=== PATIENT | female | born 1960 | race Caucasian/White ===

== ENCOUNTER 2023-12-06 09:30 | Inpatient (IN) | payer OTHER ==
[~2023-12-06] VITALS: Ht 160 cm; Wt 95.3 kg
[~2023-12-06 09:30] MED LIST: ALPHAGAN P5 M1 OP; INTEGRA F CAPS1 EACH PO; MICARDIS40 MG PO; ULTRAM50 MG PO; VITAMIN B12-FO1 EACH PO
[2023-12-06] MEDS ORDERED: JARDIANCE10 MG (11:05)
[2023-12-06] MEDS ORDERED: [UNRECOGNIZED DRUG - OTHER] (11:05)
[2023-12-06] MEDS ORDERED: ATACAND32 MG (11:05)
[2023-12-06] MEDS ORDERED: DULCOLAX5 MG (11:06)
[2023-12-06] MEDS ORDERED: ALPHAGAN P5 M2 (11:06)
[2023-12-06] MEDS ORDERED: MIRALAX17 GM (11:06)
[2023-12-06 11:20] LABS: HEMATOCRIT 40.9 % (36.0-45.00); HEMOGLOBIN 14.1 g/dL (12.0-15.00); MEAN CELL VOLUME 93.4 fL (80.00-100.00); MEAN CORPUSCULAR HEMOGLOBIN 32.2 pg (27.00-32.0); MEAN CORPUSCULAR HGB CONC 34.4 g/dl (32.0-36.0); PLATELET COUNT 181 K/uL (150-450); RED BLOOD COUNT 4.37 M/uL (4.00-6.00); RED CELL DISTRIBUTION WIDTH 13.8 % (11.5-14.5)
[2023-12-06 11:45] LABS: INR 0.97; PARTIAL THROMBOPLASTIN TIME 30.8 SECONDS (22.0-34.0); PROTHROMBIN TIME 10.2 SECONDS (9.0-11.5)
[2023-12-06 11:47] LABS: URINE APPEARANCE Clear; URINE BILIRRUBIN Negative (NEGATIVE); URINE BLOOD Negative; URINE COLOR Yellow; URINE GLUCOSE Negative (NEGATIVE); URINE KETONE Negative (NEGATIVE); URINE LEUKOCYTE Negative; URINE NITRATE Negative; URINE PROTEIN Negative (NEGATIVE); URINE UROBILINOGEN 0.2 E.U./dl
[2023-12-06 11:51] LABS: URINE BACTERIA 3822.7 uL (0.0-1933); URINE EPITHELIAL CELLS 136.8 uL (0.0-38.8); URINE WBC 23.9 uL (0.0-23.2)
[2023-12-06 12:07] LABS: ALBUMIN 3.7 gm/dL (3.4-5.0); BILIRUBIN TOTAL 0.56 mg/dL (0.3-1.2); CALCIUM 9.5 mg/dL (8.5-10.1); CREATININE SERUM 0.54 mg/dL (0.55-1.02); GFR 114.39; GLOBULINA 3.2 G/DL (2.4-3.5); POTASSIUM 4.36 mEq/L (3.5-5.1); TOTAL PROTEIN 6.9 gm/dL (6.4-8.2)
[2023-12-13] MEDS ORDERED: LIDOCAINE HCL 1%/EPINEPHRINE 20ML VIAL IJ ONE ×2 (06:54→08:30)
[2023-12-13] MEDS ORDERED: CEFTRIAXONE SODIUM 2,000 MG VIAL ONE (06:54)
[2023-12-13] MEDS ORDERED: BUPIVACAINE HCL/MPF 0.5% 30ML VIAL ONE (06:54)
[2023-12-13] MEDS ORDERED: METRONIDAZOLE/SODIUM CHLORIDE 500 MG/100 ML PIGGYBACK IV ONE ×2 (06:55→08:30)
[2023-12-13] MEDS ORDERED: BUPIVACAINE HCL 30 ML VIAL IJ ONE (08:30)
[2023-12-13] MEDS ORDERED: CEFTRIAXONE SODIUM 2,000 MG VIAL IV ONE (08:30)
[2023-12-13] MEDS ORDERED: SUGAMMADEX SODIUM 200 MG/2 ML VIAL IV ONE (09:00)
[2023-12-13] MEDS ORDERED: LACTOBACILLUS ACIDOPHILUS 1 CAP CAP PO SCH (12:43)
[2023-12-13] MEDS ORDERED: TAMSULOSIN HCL 0.4 MG CAP PO SCH (12:43)
[2023-12-13] MEDS ORDERED: RINGERS SOLUTION,LACTATED 1,000 ML IV SCH (12:45)
[2023-12-13] MEDS ORDERED: OxyCODONE HCL 5 MG TABLET (ROXICODONE) PO PRN (12:45)
[2023-12-13] MEDS ORDERED: MORPHINE SULFATE 4 MG/ML CARTRIDGE IV PRN (12:45)
[2023-12-13] MEDS ORDERED: ONDANSETRON HCL 2 MG/ML VIAL IV PRN (12:45)
[2023-12-13] MEDS ORDERED: ENALAPRILAT DIHYDRATE 1.25 MG/ML VIAL IV ONE ×2 (12:57→13:33)
[2023-12-13] MEDS ORDERED: HYOSCYAMINE SULFATE 0.125 MG TAB.SUBL SL SCH (13:00)
[2023-12-13] MEDS ORDERED: METRONIDAZOLE/SODIUM CHLORIDE 500 MG/100 ML PIGGYBACK IV SCH (17:00)
[2023-12-13] MEDS ORDERED: GABAPENTIN 300 MG CAPSULE PO SCH (17:00)
[2023-12-13] MEDS ORDERED: ACETAMINOPHEN 500 MG GEL..CAP PO SCH (18:00)
[2023-12-13] MEDS ORDERED: ENALAPRILAT DIHYDRATE 1.25 MG/ML VIAL IV PRN (20:30)
[2023-12-13] MEDS ORDERED: CIPROFLOXACIN IN 5 % DEXTROSE 400 MG/200 ML PIGGYBAG IV SCH (21:00)
[2023-12-13] MEDS ORDERED: FAMOTIDINE/PF 20 MG/2 ML VIAL IV PUSH SCH (21:00)
[2023-12-14 08:22] LABS: ALBUMIN 3.2 gm/dL (3.4-5.0); CALCIUM 9.1 mg/dL (8.5-10.1); CREATININE SERUM 0.47 mg/dL (0.55-1.02); GFR 134.27; MAGNESIUM 1.8 mg/dL (1.8-2.4); PHOSPHOROUS 2.3 mg/dL (2.5-4.9); POTASSIUM 3.86 mEq/L (3.5-5.1)
[2023-12-14] MEDS ORDERED: POTASSIUM PHOS,M-BASIC-D-BASIC 3 MM/ML VIAL IV NR (08:45)
[2023-12-14] MEDS ORDERED: DEXTROSE 50 % IN WATER 0.5 G/ML DISP.SYRIN IV PRN (08:45)
[2023-12-14] MEDS ORDERED: INSULIN LISPRO 1,000 UNIT/10 ML UNITS SUBCUTANEO PRN (08:45)
[2023-12-14] MEDS ORDERED: CANDESARTAN CILEXETIL 32 MG TABLET PO SCH (09:00)
[2023-12-14 09:11] LABS: HEMATOCRIT 39.3 % (36.0-45.00); HEMOGLOBIN 13.3 g/dL (12.0-15.00); MEAN CELL VOLUME 94.2 fL (80.00-100.00); MEAN CORPUSCULAR HEMOGLOBIN 31.8 pg (27.00-32.0); MEAN CORPUSCULAR HGB CONC 33.7 g/dl (32.0-36.0); PLATELET COUNT 177 K/uL (150-450); RED BLOOD COUNT 4.17 M/uL (4.00-6.00); RED CELL DISTRIBUTION WIDTH 13.7 % (11.5-14.5)
[2023-12-14] MEDS ORDERED: ENOXAPARIN SODIUM 40 MG/0.4 ML SYRINGE SUBCUTANEO SCH (17:00)
[2023-12-15 08:02] LABS: CALCIUM 8.7 mg/dL (8.5-10.1); CREATININE SERUM 0.48 mg/dL (0.55-1.02); GFR 131.05; PHOSPHOROUS 2.8 mg/dL (2.5-4.9); POTASSIUM 4.37 mEq/L (3.5-5.1)
[2023-12-15 08:27] LABS: HEMATOCRIT 36.9 % (36.0-45.00); HEMOGLOBIN 12.4 g/dL (12.0-15.00); MEAN CELL VOLUME 96.3 fL (80.00-100.00); MEAN CORPUSCULAR HEMOGLOBIN 32.5 pg (27.00-32.0); MEAN CORPUSCULAR HGB CONC 33.7 g/dl (32.0-36.0); PLATELET COUNT 160 K/uL (150-450); RED BLOOD COUNT 3.83 M/uL (4.00-6.00); RED CELL DISTRIBUTION WIDTH 13.6 % (11.5-14.5)
[2023-12-15] MEDS ORDERED: ENOXAPARIN SODIUM 40 MG/0.4 ML SYRINGE SUBCUTANEO SCH (09:00)
[2023-12-16] MEDS ORDERED: LEVSIN/SL0.125 MG SL (14:52)
[2023-12-16] MEDS ORDERED: NEURONTIN300 MG PO (14:52)
[2023-12-16] MEDS ORDERED: INTESTINEX680 M1 PO (14:53)
== END 2023-12-16 16:15 | disposition home or self-care (01) | DRG 331 ==
LOC: O/R 12-13 05:40 → SURG 12-13 05:40
PROVIDERS: Internal Medicine Geriatric Medicine; ADMIT Surgery; ATTEND Surgery
PROC: 0DBP4ZZ Excision of Rectum, Percutaneous Endoscopic Approach (ICD-10-PCS; 2023-12-13)
PROC: 0DNW4ZZ Release Peritoneum, Percutaneous Endoscopic Approach (ICD-10-PCS; 2023-12-13)
PROC: 0DJD8ZZ Inspection of Lower Intestinal Tract, Via Natural or Artificial Opening Endoscopic (ICD-10-PCS; 2023-12-13)
PROC: 0DTN4ZZ Resection of Sigmoid Colon, Percutaneous Endoscopic Approach (ICD-10-PCS; principal; 2023-12-13 11:00)
DX: K57.20 Diverticulitis of large intestine with perforation and abscess without bleeding (principal); K66.0 Peritoneal adhesions (postprocedural) (postinfection); R10.9 Unspecified abdominal pain; I10 Essential (primary) hypertension; E78.5 Hyperlipidemia, unspecified; Z86.010 Personal history of colon polyps